=== PATIENT | female | born 1980 | race Two or more races ===

== ENCOUNTER 2025-04-06 14:11 | Emergency (ER) | payer MEDICARE, MEDICAID, SELFPAY ==
[2025-04-06 14:13] VITALS: BP 156/81; PULSE 73; RESP 19; TEMP 37.1; O2SAT 96; BMI 32.6
[2025-04-06 14:42] VITALS: BP 161/91; PULSE 81; RESP 15; TEMP 36.2; O2SAT 96; BMI 32.6
--- NOTE | 2025-04-06 14:58 | XR_ITS ---
Examination: CT left foot, without contrast. 2-D sagittal reconstructions. 2-D coronal reconstructions. 3-D reconstructions. Date and time of exam:April 06, 2025 1551 hours INDICATIONS: Injured the foot today, foot pain CTDI: vol (mGy):3.97 DLP: (mGycm):105 Technique: Multiple 1.25 mm axial sections of the left foot without and venous contrast have been obtained. 2-D sagittal and coronal reconstructions have been obtained. 3-D reconstructions have been obtained. Low dose protocols were performed. One or more of the following dose reduction techniques were used; automated exposure control, adjustment of the mA and/or KV according to patient size, use of iterative reconstruction technique. Findings: Distal tibia and distal fibula intact and Talus calcaneus cuboid navicular intact No Lisfranc tarsometatarsal dislocations No acute fracture involving metatarsals or digits No dislocation IMPRESSION: No acute fracture If pain persists, consider MRI foot without contrast follow-up
--- NOTE | 2025-04-06 14:58 | XR_ITS ---
Examination: Foot, left, 3 views Technique: AP, oblique, lateral views foot, 3 views Date and time of exam: April 06, 2025 1517 hours INDICATIONS: Injury to the foot 4 days ago, foot pain FINDINGS: Moderate osteopenia No acute fracture No dislocation IMPRESSION: No acute fracture
--- NOTE | 2025-04-06 15:52 | EDNOTE_ITS ---
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 as she has had previous issues in the past with the same foot Limitations: no limitations Related Data Previous Rx's ?Medication ?Instructions ?Recorded hydrocodone 5 mg-acetaminophen 325 1 tab PO BID PRN pa in #8 tabs 04/06/25 mg tablet ibuprofen 600 mg tablet 600 mg PO Q6H #30 tabs 04/06 Allergies Allergy/AdvReac Type Severity Reaction Status Date / Time duloxetine (From Cymbalta) Allergy Severe Anaphylaxis Verified 04/06/25 14:16 metoclopramide (From Reglan) Allergy Severe Anaphylaxis Verified 04/06/25 14:16 Review of Systems Review of Systems Systems Reviewed: All systems reviewed, normal except as documented Constitutional Constitutional: Reports system reviewed and no additional complaints, except as documented, Denies fever(s) and Denies headache(s) Eyes Eyes: Reports system reviewed and no additional complaints, except as documented and Denies blurry vision ENT Ears, Nose, Mouth, and Throat: Reports system reviewed and no additional complaints, except as documented, Denies headache(s), Denies nasal congestion and Denies nasal discharge Cardiovascular Cardiovascular: Reports system reviewed and no additional complaints, except as documented, Denies chest pain and Denies dyspnea Respiratory Respiratory: Reports system reviewed and no additional complaints, except as documented, Denies chest congestion, Denies cough and Denies dyspnea Gastrointestinal Gastrointestinal: Reports system reviewed and no additional complaints, except as documented and Denies abdominal pain Musculoskeletal Musculoskeletal: Reports system reviewed and no additional complaints, except as documented, Denies abnormal gait, Reports arthralgias, Denies deformity, Reports joint swelling, Denies numbness, Reports stiffness and Denies tingling Integumentary/Breasts Skin/Breast: Reports system reviewed and no additional complaints, except as documented and Denies rash Neurologic Neurologic: Reports system reviewed and no additional complaints, except as documented, Reports as per HPI, Denies abnormal gait, Denies headache(s), Denies numbness and Denies tingling Past Medical History Social History SMOKING STATUS: Never smoker ED Exam General Limitations: Present no limitations General appearance: Present alert and in no apparent distress Head Head exam: Present atraumatic Eye Eye exam: Present normal appearance, PERRL and EOMI ENT ENT exam: Present normal exam, normal oropharynx and mucous membranes moist Neck Neck exam: Present normal inspection, full ROM and trachea midline Chest Chest inspection: Present normal inspection and symmetric chest wall rise Respiratory Respiratory exam: Present normal lung sounds bilaterally Cardiovascular Cardiovascular exam: Present regular rate, normal rhythm and normal heart sounds Abdominal Exam Abdominal exam: Present soft and normal bowel sounds Extremities Exam Extremities exam: Present full ROM, tenderness and normal capillary refill Back Exam Back exam: Present normal inspection and full ROM Neurological Exam Neurological exam: Present alert, oriented X3, CN II-XII intact, normal gait and reflexes normal; Absent motor sensory deficit Psychiatric Psychiatric exam: Present normal affect and normal mood Skin Skin exam: Present warm, dry, intact and normal color Course Quality Measures none Orders Category Date Time Status Crutches .NOW Care 04/06/25 16:09 Completed gabriel wrap [Splint / Immobilizer] STAT Care 04/06/25 16:[address] foot LT wo con Stat Exams 04/06/25 14:58 Completed XR foot comp LT min 3V Stat Exams 04/06/25 14:58 Completed oxyCODONE/APAP 5/325 [Percocet 5/325] Med 04/06/25 16:09 Discontinued 1 tab PO X1 ONE Vital Signs Vital signs: Vital Signs Temperature 98.8 F 04/06/25 14:13 Pulse Rate 73 04/06/25 14:13 Respiratory Rate 19 04/06/25 14:13 Blood Pressure 156/81 H 04/06/25 14:13 Pulse Oximetry (%) 96 04/06/25 14:13 Oxygen Delivery Method Room Air 04/06/25 14:13 O2 saturation 96% on room air within normal limits Extremity Injury, Lower MDM Narrative MDM Narrative:: 44-year-old female presents to the emergency department for complaints of left foot pain patient reports that she dropped a box of beads on her foot on Sunday patient reports that she has a 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 as she has had previous issues in the past with the same foot On exam patient has pain and swelling to the dorsal aspect of the left foot X-ray as well as CT scan obtained no acute fracture dislocation noted Patient placed in Gabriel wrap given crutches Patient given a dose of Percocet here per her request Patient discharged home with ibuprofen and Denair Patient discharged home in no distress to follow-up with primary care doctor in the next 24 to 48 hours and for any worsening symptoms to return to the ER immediately Patient data External records reviewed:: [facility] previous records Clinical information provided by:: patient Social determinants that could affect healthcare access:: none Patient has the following chronic illnesses:: See history How is presenting disease/condition affected by chronic disease/condition?: uneffected by Evaluation data The following diagnostics were reviewed and interpreted by me:: radiology exam(s) Lab and/or radiology exams considered but not ordered:: Radiology obtain Interpretation Summary: Reviewed by me Medications / Prescriptions Medications or Prescriptions considered but not ordered:: Given Medication administrations:: Medication Administration History Discontinued Medications Oxycodone/Acetaminophen (Oxycodone/Apap 5/325 Tablet) 1 tab PO X1 ONE Stop: 04/06/25 16:10 Given Consultations Consultation(s) initiated? (list below): No Diagnosis Extremity Injury, Lower Differential Diagnosis: ankle sprain and strain and ankle fracture Most likely diagnosis given after review of the tests above:: Contusion of foot Admission Indicated Admission indicated?: not indicated Admission Request Was there a request for admission?: No Disposition Plan Disposition Plan: Discharge Discharge Attestation Discharge Attestation: The patient and all family members were given an opportunity to ask questions and understood the discharge instructions. Discharge instructions specifically effects, indications for sooner follow up or return to the emergency department, and the expected course of current diagnosis. Patient condition: Stable Discharge Plan Plan Patient Disposition: HOME (Self Care) Discharge Disposition comment: Stable Prescriptions/Referrals Prescriptions/Med Rec: New hydrocodone-acetaminophen 5-325 mg tablet 1 tab PO BID MDD 10 PRN (Reason: pain) Qty: 8 0RF ibuprofen 600 mg tablet 600 mg PO Q6H Qty: 30 0RF Referrals: Martha Sharpe MD [Primary Care Provider] - 04/07/25 Problem List Clinical Impression: Contusion of foot, left Patient/Caregiver Discharge Instructions Education Materials: Bruises (Contusions) Additional Instructions: Please follow up with your primary care doctor in the next 24-48hrs for any worsening symptoms return here immediately Print Language: Chinese Stand Alone Forms: Tila Award Info., Patient Portal Info Letter PA/FIRST OFFICER Supervising Physician PA/FIRST OFFICER Supervising Physician: Dr. pedro
[2025-04-06] MEDS: oxyCODONE/APAP 5/325 TABLET 1 TAB PO (16:10)
[2025-04-06 16:23] VITALS: PULSE 80; RESP 18; TEMP 37.2; O2SAT 99
== END 2025-04-06 16:25 | disposition home or self-care (01) ==
PROVIDERS: Emergency Provider Family Medicine; PCP Internal Medicine
DX: S90.32XA Contusion of left foot, initial encounter (principal); W20.8XXA Other cause of strike by thrown, projected or falling object, initial encounter
CPT/HCPCS: 73630; 73700; 99284; A9270

== ENCOUNTER 2025-07-08 10:08 | Emergency (ER) | payer MEDICARE, OTHER, MEDICAID, SELFPAY ==
[2025-07-08 10:33] VITALS: BP 155/92; PULSE 92; RESP 16; TEMP 37.1; O2SAT 97
--- NOTE | 2025-07-08 10:47 | XR_ITS ---
Examination: PA lateral chest 2 views TECHNIQUE: Upright PA lateral chest 2 views Date and time: July 08, 2025, 1224 hours INDICATIONS: Coughing fever chest pain beginning 2 days ago. FINDINGS: Normal heart size No pneumonia or pulmonary edema Prominent right shoulder calcific tendinitis IMPRESSION: No pneumonia or pulmonary edema
[2025-07-08 11:20] LABS: Strep A Rapid Negative (Negative)
--- NOTE | 2025-07-08 12:18 | PC.NURSE ---
SPOKE W/ GIANNI IN X-RAY THAT PT'S X-RAY NEEDS TO BE DONE. HE SAID HE WOULD COME IN A FEW MINUTES.
[2025-07-08] MEDS: KETOROLAC INJ 30 MG/ML VIAL IM (12:37)
--- NOTE | 2025-07-08 12:48 | EDNOTE_ITS ---
Upper Respiratory Inf. RME/HPI General Chief Complaint: Shortness of Breath/Dyspnea Stated Complaint: LUNGS TIGHT, CHEST PAIN, HEADACHE, BODY ACHES Time Seen by Provider: 07/08/25 10:48 Arrival date/time: 07/08/25 10:08 45-year-old female presents to the Emergency Department for patient cough, congestion, runny nose and generalized bodyaches patient for symptom onset 3 to 4 days ago reports no headache symptoms better or worse Limitations: no limitations Related Data Previous Rx's ?Medication ?Instructions ?Recorded hydrocodone 5 mg-acetaminophen 325 1 tab PO BID PRN pa in #8 tabs 04/06/25 mg tablet ibuprofen 600 mg tablet 600 mg PO Q6H #30 tabs 04/06 Ventolin HFA 90 mcg/actuation 2 puff inhalation Q6H MA N 07/08/25 aerosol inhaler (albuterol sulfate) shortness of breat h or wheezing #18 grams albuterol sulfate 2.5 mg/3 mL 2.5 mg (3 mL) inhalation Q4H PRN 07/08/25 (0.083 %) solution for nebulization shortness of breat h #90 mL benzonatate 100 mg capsule 100 mg PO TID #14 caps 06/16 02/06 Allergies Allergy/AdvReac Type Severity Reaction Status Date / Time duloxetine (From Cymbalta) Allergy Severe Anaphylaxis Verified 07/08/25 10:12 metoclopramide (From Reglan) Allergy Severe Anaphylaxis Verified 07/08/25 10:12 Review of Systems Review of Systems Systems Reviewed: All systems reviewed, normal except as documented Constitutional Constitutional: Reports system reviewed and no additional complaints, except as documented, Denies fever(s) and Reports headache(s) Eyes Eyes: Reports system reviewed and no additional complaints, except as documented and Denies blurry vision ENT Ears, Nose, Mouth, and Throat: Reports system reviewed and no additional complaints, except as documented, Reports headache(s), Reports nasal congestion and Reports nasal discharge Cardiovascular Cardiovascular: Reports system reviewed and no additional complaints, except as documented, Denies chest pain and Denies dyspnea Respiratory Respiratory: Reports system reviewed and no additional complaints, except as documented, Reports chest congestion, Reports cough and Denies dyspnea Gastrointestinal Gastrointestinal: Reports system reviewed and no additional complaints, except as documented and Denies abdominal pain Integumentary/Breasts Skin/Breast: Reports system reviewed and no additional complaints, except as documented and Denies rash Neurologic Neurologic: Reports system reviewed and no additional complaints, except as documented, Reports as per HPI and Reports headache(s) Past Medical History Social History SMOKING STATUS: Never smoker ED Exam General Limitations: Present no limitations General appearance: Present alert and in no apparent distress Head Head exam: Present atraumatic, normocephalic and normal inspection Eye Eye exam: Present normal appearance, PERRL and EOMI; Absent conjunctival injection ENT ENT exam: Present normal exam, normal oropharynx and mucous membranes moist Neck Neck exam: Present normal inspection, full ROM and trachea midline Chest Chest inspection: Present normal inspection and symmetric chest wall rise Respiratory Respiratory exam: Present normal lung sounds bilaterally Cardiovascular Cardiovascular exam: Present regular rate, normal rhythm and normal heart sounds; Absent bradycardia Abdominal Exam Abdominal exam: Present soft and normal bowel sounds; Absent distention or tenderness Extremities Exam Extremities exam: Present normal inspection and full ROM Back Exam Back exam: Present normal inspection and full ROM Neurological Exam Neurological exam: Present alert, oriented X3 and CN II-XII intact Psychiatric Psychiatric exam: Present normal affect and normal mood Skin Skin exam: Present warm, dry, intact and normal color Course Quality Measures none Orders Category Date Time Status Bedside COVID-19 Antigen Test NOW Care 07/08/25 10:47 Completed Bedside Influenza A&B Antigen Test NOW Care 07/08/25 10:47 Completed XR chest 2V Stat Exams 07/08/25 10:47 Completed Strep A Rapid Stat Lab 07/08/25 10:56 Completed Albuterol/Ipratr Rt Aruna [Duoneb Rt Aruna] Med 07/08/25 12:44 Discontinued 3 ml INH X1 ONE Dexamethasone Inj [Decadron Inj] Med 07/08/25 10:47 Discontinued 10 mg PO X1 ONE DiphenhydrAMINE [Benadryl] Med 07/08/25 10:47 Discontinued 25 mg PO X1 ONE Ketorolac Inj [Toradol Inj] Med 07/08/25 12:20 Discontinued 30 mg IM X1 ONE Vital Signs Vital signs: Vital Signs Temperature 98.7 F 07/08/25 10:33 Pulse Rate 92 07/08/25 10:33 Respiratory Rate 16 07/08/25 10:33 Blood Pressure 155/92 H 07/08/25 10:33 Pulse Oximetry (%) 97 07/08/25 10:33 Oxygen Delivery Method Room Air 07/08/25 10:33 O2 saturation 97% on room air within normal limits Upper Respiratory Infection MDM Narrative MDM Narrative:: 45-year-old female presents to the Emergency Department for patient cough, congestion, runny nose and generalized bodyaches patient for symptom onset 3 to 4 days ago reports no headache symptoms better or worse On exam patient well-appearing patient does not appear ill or toxic no acute distress Lungs are clear to auscultation but patient requesting breathing treatment Chest x-ray obtained no acute pneumonic process noted Flu and COVID-negative strep negative Symptoms consistent with viral illness For emergent concerns patient struck to return immediately for further Patient data External records reviewed:: [facility] previous records Clinical information provided by:: patient Social determinants that could affect healthcare access:: none Patient has the following chronic illnesses:: None How is presenting disease/condition affected by chronic disease/condition?: no chronic disease Evaluation data The following diagnostics were reviewed and interpreted by me:: lab results and radiology exam(s) Lab and/or radiology exams considered but not ordered:: Labs radiology obtained Interpretation Summary: Read by me Medications / Prescriptions Medications or Prescriptions considered but not ordered:: Given Medication administrations:: Medication Administration History Discontinued Medications Albuterol/Ipratropium (Albuterol/Ipratropium (Duoneb) Rt Aruna 3 Ml Nebu) 3 ml INH X1 ONE Stop: 07/08/25 12:45 Last Admin: 07/08/25 13:01 Dose: 3 ml Documented By: MARISSA Dexamethasone Sodium Phosphate (Dexamethasone Sod Phos Inj 10 Mg/Ml Vial) 10 mg PO X1 ONE Stop: 07/08/25 10:48 Last Admin: 07/08/25 10:55 Dose: Not Given Documented By: OA Non-Admin Reason: Patient Refused Diphenhydramine HCl (Diphenhydramine 25 Mg Capsule) 25 mg PO X1 ONE Stop: 07/08/25 10:48 Last Admin: 07/08/25 10:54 Dose: 25 mg Documented By: NANY Ketorolac Tromethamine (Ketorolac Inj 30 Mg/Ml Vial) 30 mg IM X1 ONE Stop: 07/08/25 12:21 Last Admin: 07/08/25 12:37 Dose: 30 mg Documented By: OA Given Consultations Consultation(s) initiated? (list below): No Diagnosis Upper Respiratory Differential Diagnosis: upper respiratory infection, sinusitis and viral infection Most likely diagnosis given after review of the tests above:: URI Admission Indicated Admission indicated?: not indicated Admission Request Was there a request for admission?: No Disposition Plan Disposition Plan: Discharge Discharge Attestation Discharge Attestation: The patient and all family members were given an opportunity to ask questions and understood the discharge instructions. Discharge instructions specifically effects, indications for sooner follow up or return to the emergency department, and the expected course of current diagnosis. Patient condition: Stable Discharge Plan Plan Patient Disposition: HOME (Self Care) Discharge Disposition comment: Stable Prescriptions/Referrals Prescriptions/Med Rec: New benzonatate 100 mg capsule 100 mg PO TID Qty: 14 0RF albuterol sulfate 2.5 mg /3 mL (0.083 %) solution for nebulization 2.5 mg IH Q4H PRN (Reason: shortness of breath) Qty: 90 0RF albuterol sulfate [Ventolin HFA] 90 mcg/actuation HFA aerosol inhaler 2 puff inhalation Q6H PRN (Reason: shortness of breath or wheezing) Qty: 18 0RF No Action hydrocodone-acetaminophen 5-325 mg tablet 1 tab PO BID MDD 10 PRN (Reason: pain) Qty: 8 0RF ibuprofen 600 mg tablet 600 mg PO Q6H Qty: 30 0RF Referrals: Martha Sharpe MD [Primary Care Provider] - 07/09/25 Problem List Clinical Impression: Upper respiratory infection Patient/Caregiver Discharge Instructions Education Materials: ED URI, Viral, No Abx (Adult) Additional Instructions: Please follow up with your primary care doctor in the next 24-48hrs for any worsening symptoms return here immediately Print Language: Cape Verdean Stand Alone Forms: Tila Award Info., Patient Portal Info Letter PA/EXTRACTOR OPERATOR SOLVENT PROCESS Supervising Physician PA/EXTRACTOR OPERATOR SOLVENT PROCESS Supervising Physician: dr dillard
[2025-07-08 13:01] VITALS: PULSE 84; RESP 18; O2SAT 99
[2025-07-08] MEDS: ALBUTEROL/IPRATROPIUM (Duoneb) RT SOL 3 ML NEBU INH (13:01)
== END 2025-07-08 13:27 | disposition home or self-care (01) ==
PROVIDERS: Nurse Practitioner Primary Care; Emergency Provider Emergency Medicine; PCP Internal Medicine
DX: J06.9 Acute upper respiratory infection, unspecified (principal)
CPT/HCPCS: 71046; 87651; 94640; 96372; 99283; A9270; J1885

== ENCOUNTER 2025-07-10 21:04 | Emergency (ER) | payer MEDICARE, MEDICAID, SELFPAY ==
[2025-07-10 21:05] VITALS: BMI 32.6
[2025-07-10 21:44] VITALS: BP 142/95; PULSE 83; RESP 17; TEMP 36.9; O2SAT 97
--- NOTE | 2025-07-10 21:51 | PD.EDRME ---
Rapid Medical Screening Exam RME Arrival date/time: 07/10/25 21:04 45F with history of unspecified angioedema presents to ED with several days of worsening dry cough and SOB. Patient was recently seen here for this. Patient also saw PCP who states she had PNA despite clear CXR and gave her Rocephin and doxy w/o improvement. Chief Complaint: Shortness of Breath/Dyspnea Time Seen by Provider: 07/10/25 22:50 Vital signs: Vital Signs Temperature 98.5 F 07/10/25 21:44 Pulse Rate 83 07/10/25 21:44 Respiratory Rate 17 07/10/25 21:44 Blood Pressure 142/95 H 07/10/25 21:44 Pulse Oximetry (%) 97 07/10/25 21:44 Oxygen Delivery Method Room Air 07/10/25 21:44
--- NOTE | 2025-07-10 22:50 | EDNOTE_ITS ---
Upper Respiratory Inf. RME/HPI General Chief Complaint: Shortness of Breath/Dyspnea Stated Complaint: DYSPNEA CHEST PAIN Time Seen by Provider: 07/10/25 22:50 Arrival date/time: 07/10/25 21:04 45F with history of unspecified angioedema presents to ED with several days of worsening dry cough and SOB. Patient was recently seen here for this. Patient also saw PCP who states she had PNA despite clear CXR and gave her Rocephin and doxy w/o improvement. Limitations: no limitations RME / HPI RME / HPI Narrative: 07/10/25 21:04 45F with history of unspecified angioedema presents to ED with several days of worsening dry cough and SOB. Patient was recently seen here for this. Patient also saw PCP who states she had PNA despite clear CXR and gave her Rocephin and doxy w/o improvement. Related Data Previous Rx's ?Medication ?Instructions ?Recorded hydrocodone 5 mg-acetaminophen 325 1 tab PO BID PRN pa in #8 tabs 04/06/25 mg tablet ibuprofen 600 mg tablet 600 mg PO Q6H #30 tabs 04/06 Ventolin HFA 90 mcg/actuation 2 puff inhalation Q6H MS N 07/08/25 aerosol inhaler (albuterol sulfate) shortness of breat h or wheezing #18 grams albuterol sulfate 2.5 mg/3 mL 2.5 mg (3 mL) inhalation Q4H PRN 07/08/25 (0.083 %) solution for nebulization shortness of breat h #90 mL benzonatate 100 mg capsule 100 mg PO TID #14 caps 06/16 02/06 albuterol sulfate 2.5 mg/3 mL 2.5 mg (3 mL) inhalation QID PRN 07/10/25 (0.083 %) solution for nebulization shortness of breat h or wheezing #75 mL Allergies Allergy/AdvReac Type Severity Reaction Status Date / Time duloxetine (From Cymbalta) Allergy Severe Anaphylaxis Verified 07/10/25 21:09 metoclopramide (From Reglan) Allergy Severe Anaphylaxis Verified 07/10/25 21:09 Review of Systems Review of Systems Systems Reviewed: All systems reviewed, normal except as documented Cardiovascular Cardiovascular: Reports dyspnea Respiratory Respiratory: Reports as per HPI, Reports cough and Reports dyspnea Past Medical History Social History SMOKING STATUS: Never smoker ED Exam General Limitations: Present no limitations General appearance: Present alert and in no apparent distress Head Head exam: Present atraumatic Neck Neck exam: Present normal inspection, full ROM and trachea midline Chest Chest inspection: Present normal inspection and symmetric chest wall rise Respiratory Respiratory exam: Present normal lung sounds bilaterally Psychiatric Psychiatric exam: Present normal affect and normal mood Skin Skin exam: Present warm, dry, intact and normal color Course Quality Measures none Orders Category Date Time Status XR chest 2V Stat Exams 07/10/25 21:51 Ordered B-Type Natriuretic Peptide Stat Lab 07/10/25 21:51 Ordered CBC Stat Lab 07/10/25 21:51 Ordered Comprehensive Metabolic Panel Stat Lab 07/10/25 21:51 Ordered Magnesium Stat Lab 07/10/25 21:51 Ordered Troponin I Stat Lab 07/10/25 21:51 Ordered Albuterol/Ipratr Rt Aruna [Duoneb Rt Aruna] Med 07/10/25 21:59 Discontinued 6 ml INH X1 ONE Dexamethasone Inj [Decadron Inj] Med 07/10/25 21:51 Discontinued 10 mg PO X1 ONE Vital Signs Vital signs: Vital Signs Temperature 98.5 F 07/10/25 21:44 Pulse Rate 83 07/10/25 21:44 Respiratory Rate 17 07/10/25 21:44 Blood Pressure 142/95 H 07/10/25 21:44 Pulse Oximetry (%) 97 07/10/25 21:44 Oxygen Delivery Method Room Air 07/10/25 21:44 O2 at 97% on RA and WNLs Upper Respiratory Infection MDM Narrative MDM Narrative:: 45F with history of unspecified angioedema presents to ED with several days of worsening dry cough and SOB. Patient was recently seen here for this. Patient also saw PCP who states she had PNA despite clear CXR and gave her Rocephin and doxy w/o improvement. Physical exam reveals clear lungs. Normal WOB. Patient is afebirle, alert, but annoyed. Patient refused diagnostics. Patient only wants breathing tx. Patient data External records reviewed:: [facility] previous records Clinical information provided by:: patient Social determinants that could affect healthcare access:: none Patient has the following chronic illnesses:: angioedema How is presenting disease/condition affected by chronic disease/condition?: exacerbated by Evaluation data The following diagnostics were reviewed and interpreted by me:: other (specify) (patient refused) Lab and/or radiology exams considered but not ordered:: patient refused Interpretation Summary: patient refused Medications / Prescriptions Medications or Prescriptions considered but not ordered:: ordered Medication administrations:: Medication Administration History Discontinued Medications Albuterol/Ipratropium (Albuterol/Ipratropium (Duoneb) Rt Aruna 3 Ml Nebu) 6 ml INH X1 ONE Stop: 07/10/25 22:00 Dexamethasone Sodium Phosphate (Dexamethasone Sod Phos Inj 10 Mg/Ml Vial) 10 mg PO X1 ONE Stop: 07/10/25 21:52 Last Admin: 07/10/25 22:46 Dose: Not Given Documented By: DT Non-Admin Reason: Patient Refused above Consultations Consultation(s) initiated? (list below): No Diagnosis Upper Respiratory Differential Diagnosis: upper respiratory infection, croup, otitis media, sinusitis, viral infection, bronchitis, influenza, pharyngitis and other (RAD) Most likely diagnosis given after review of the tests above:: RAD Admission Indicated Admission indicated?: not indicated Admission Request Was there a request for admission?: No Disposition Plan Disposition Plan: Discharge Discharge Attestation Discharge Attestation: The patient and all family members were given an opportunity to ask questions an d understood the discharge instructions. Discharge instructions specifically effects, indications for sooner follow up or return to the emergency department, and the expected course of current diagnosis. Patient condition: Stable Discharge Plan Plan Patient Disposition: HOME (Self Care) Discharge Disposition comment: Stable Prescriptions/Referrals Prescriptions/Med Rec: New albuterol sulfate 2.5 mg /3 mL (0.083 %) solution for nebulization 2.5 mg inhalation QID PRN (Reason: shortness of breath or wheezing) Qty: 75 0RF No Action hydrocodone-acetaminophen 5-325 mg tablet 1 tab PO BID MDD 10 PRN (Reason: pain) Qty: 8 0RF ibuprofen 600 mg tablet 600 mg PO Q6H Qty: 30 0RF benzonatate 100 mg capsule 100 mg PO TID Qty: 14 0RF albuterol sulfate 2.5 mg /3 mL (0.083 %) solution for nebulization 2.5 mg IH Q4H PRN (Reason: shortness of breath) Qty: 90 0RF albuterol sulfate [Ventolin HFA] 90 mcg/actuation HFA aerosol inhaler 2 puff inhalation Q6H PRN (Reason: shortness of breath or wheezing) Qty: 18 0RF Referrals: Martha Sharpe MD [Primary Care Provider] - In 1 week Problem List Clinical Impression: RAD (reactive airway disease) Patient/Caregiver Discharge Instructions Additional Instructions: Please follow-up with PCP within 24-48 hours and return immediately if symptoms worsen. Can continue taking prescribed meds from PCP. Print Language: Syriac Stand Alone Forms: Patient Portal Info Letter JENIFER/SHWETHA Supervising Physician JENIFER/HSWETHA Supervising Physician: Dr. Sprague
[2025-07-10] MEDS: ALBUTEROL/IPRATROPIUM (Duoneb) RT SOL 3 ML NEBU 6 ML INH (23:05)
[2025-07-10 23:06] VITALS: PULSE 88; RESP 20; O2SAT 100
== END 2025-07-10 23:36 | disposition home or self-care (01) ==
PROVIDERS: Emergency Provider Emergency Medicine; PCP Internal Medicine
DX: J45.909 Unspecified asthma, uncomplicated (principal)
CPT/HCPCS: 80053; 83735; 83880; 84484; 85025; 85379; 94640; 99283; A9270

== ENCOUNTER 2025-07-30 16:05 | Emergency (ER) | payer MEDICARE, OTHER, SELFPAY ==
--- NOTE | 2025-07-30 16:08 | EKG_ITS ---
[facility] Test Date: 2025-07-30 Pat Name: JEAN-CLAUDE SMALLWOOD Department: Room: - Gender: Female [employer] Operator: : 1980 Requested By: ED Temporary Provider Order Number: [id number] Reading MD: ED Temporary Provider Measurements Intervals [place] Rate: 82 P: 60 W[place]: 144 QRS: 48 QRSD: 88 T: 15 QT: 363 QTc: 424 Interpretive Statements SINUS RHYTHM No previous ECG available for comparison /store/S0/[id number]/ecg/[id number].pdf
[2025-07-30 16:14] VITALS: BP 163/91; PULSE 79; RESP 18; TEMP 36.7; O2SAT 97
--- NOTE | 2025-07-30 16:17 | PD.EDRME ---
Rapid Medical Screening Exam RME Arrival date/time: 07/30/25 16:05 45-year-old female presents to the emergency room due to complaint of left-sided chest pain radiating down her left arm onset today Chief Complaint: Chest Pain Vital signs: Vital Signs Temperature 98.1 F 07/30/25 16:14 Pulse Rate 79 07/30/25 16:14 Respiratory Rate 18 07/30/25 16:14 Blood Pressure 163/91 H 07/30/25 16:14 Pulse Oximetry (%) 97 07/30/25 16:14 Oxygen Delivery Method Room Air 07/30/25 16:14
--- NOTE | 2025-07-30 16:18 | XR_ITS ---
EXAMINATION: PA lateral chest 2 views TECHNIQUE: Upright PA lateral chest 2 views Date and time: July 30, 2025, 1704 hours, comparison 07/08/2025 INDICATIONS: Chest pain radiating to left arm with dizziness today. FINDINGS: Normal heart size Lungs are clear. The osseous structures are intact. IMPRESSION: No active disease
[2025-07-30 16:55] LABS: Basophils # (Auto) 0.0 Thou/mm3 (0.0-0.2); Basophils % (Auto) 0 % (0-2.5); Eosinophils # (Auto) 0.1 Thou/mm3 (0.0-0.5); Eosinophils % (Auto) 1 % (0-10); Hematocrit 39.0 % (36.0-46.0); Hemoglobin 13.6 g/dL (12.0-16.0); Immature Granulocytes Auto 0.03 Thou/mm3 (0.00-0.00); Lymphocytes # (Auto) 3.4 Thou/mm3 (1.0-4.8); Lymphocytes % (Auto) 32 % (10-50); Mean Corpuscular HGB Conc 34.9 g/dl (31.0-37.0); Mean Corpuscular Hemoglobin 30.0 pg (25.0-35.0); Mean Corpuscular Volume 86 fL (80-100); Monocytes # (Auto) 0.7 Thou/mm3 (0.0-0.8); Monocytes % (Auto) 7 % (0-12); Neutrophils # (Auto) 6.3 Thou/mm3 (1.8-7.7); Neutrophils % (Auto) 60 % (37-80); Nucleated Red Blood Cell # 0.00 Thou/mm3 (0.00-0.00); Nucleated Red Blood Cell % 0 /100 WBC (0); Platelet Count 302 Thou/mm3 (140-440); RDW Standard Deviation 38.3 fL (36.4-46.3); Red Blood Count 4.53 Miln/mm3 (4.00-5.20); White Blood Count 10.5 Thou/mm3 (3.6-11.0)
[2025-07-30 17:13] LABS: B-Type Natriuretic Peptide < 20 pg/mL (0-100)
[2025-07-30 17:15] LABS: Alanine Aminotransferase 15 U/L (10-49); Albumin, Serum 4.4 gm/dL (3.5-5.0); Albumin/Globulin Ratio 1.7 (1.2-2.2); Alkaline Phosphatase 57 U/L (46-116); Anion Gap 12 (7-16); Aspartate Amino Transferase 20 U/L (0-34); BUN/Creatinine Ratio 16 Ratio (12-20); Bilirubin,Total 0.2 mg/dL (0.3-1.2); Blood Urea Nitrogen 11 mg/dL (9-23); Calcium 9.4 mg/dL (8.3-10.6); Calcium (Corrected) 9.4 mg/dL (8.5-10.1); Carbon Dioxide 22.7 mMol/L (20.0-31.0); Chloride 106 mMol/L (98-107); Creatinine (Component) 0.7 mg/dL (0.6-1.3); Globulin 2.6 gm/dL (2.3-3.5); Glucose 89 mg/dL (74-106); Osmolality,Calculated 279 (275-295); Potassium 3.8 mMol/L (3.4-5.1); Sodium 141 mMol/L (136-145); Total Protein 7.0 gm/dL (5.7-8.2); Troponin I < 0.002 ng/mL (0.0-0.045); eGFR > 60 See Note
[2025-07-30 18:01] LABS: HCG,Qualitative Serum Negative
[2025-07-30 19:50] VITALS: BP 159/88; PULSE 83; RESP 18; TEMP 37.2; O2SAT 98
[2025-07-30 19:51] VITALS: BMI 33.6
--- NOTE | 2025-07-30 20:04 | EDNOTE_ITS ---
ED Chest Pain RME/HPI General Chief Complaint: Chest Pain Stated Complaint: C/P LEFT ARM PAIN X 1 HOUR Time Seen by Provider: 07/30/25 17:42 Arrival date/time: 07/30/25 16:05 RME / HPI RME / HPI narrative: 07/30/25 16:05 45-year-old female presents to the emergency room due to complaint of left-sided chest pain radiating down her left arm onset today Dr. Baker?s Main ED Evaluation: 45yo female with a history of HTN, hypothyroidism, angioedema presents to the ED for a chief complaint of left- sided chest pain x 1600. Patient was grocery shopping when she developed sudden left-sided chest pain that radiates down her left arm, rating the pain an 8 out of 10 in severity. Patient reports associated nausea. She denies any vomiting, shortness of breath, or any other associated symptoms. Denies any tobacco use. Related Data Previous Rx's ?Medication ?Instructions ?Recorded hydrocodone 5 mg-acetaminophen 325 1 tab PO BID PRN pa in #8 tabs 04/06/25 mg tablet ibuprofen 600 mg tablet 600 mg PO Q6H #30 tabs 04/06 Ventolin HFA 90 mcg/actuation 2 puff inhalation Q6H CA N 07/08/25 aerosol inhaler (albuterol sulfate) shortness of breat h or wheezing #18 grams albuterol sulfate 2.5 mg/3 mL 2.5 mg (3 mL) inhalation Q4H PRN 07/08/25 (0.083 %) solution for nebulization shortness of breat h #90 mL benzonatate 100 mg capsule 100 mg PO TID #14 caps 06/16 02/06 albuterol sulfate 2.5 mg/3 mL 2.5 mg (3 mL) inhalation QID PRN 07/10/25 (0.083 %) solution for nebulization shortness of breat h or wheezing #75 mL Allergies Allergy/AdvReac Type Severity Reaction Status Date / Time duloxetine (From Cymbalta) Allergy Severe Anaphylaxis Verified 07/30/25 16:08 metoclopramide (From Reglan) Allergy Severe Anaphylaxis Verified 07/30/25 16:08 Review of Systems Review of Systems Systems Reviewed: All systems reviewed, normal except as documented Past Medical History Past Medical History CARDIAC: Positive Hypertension; Negative Congestive Heart Failure RESPIRATORY: Negative Chronic Obstructive Pulmonary Disease (COPD) GASTROINTESTINAL: Positive Pancreatitis GENITOURINARY: Negative Renal Disease ENDOCRINE: Positive Hypothyroidism; Negative Diabetes Mellitus Type 1 or Diabetes Mellitus Type 2 PSYCHO/SOCIAL: Positive Anxiety Social History SMOKING STATUS: Never smoker ED Exam Narrative Physical exam: Generally patient is alert in no obvious distress, heart regular rate and rhythm, lungs clear to auscultation equal bilaterally, chest wall shows no tenderness to palpation, abdomen soft bowel sounds present nondistended nontender, neurologic exam Denise Coma Scale is 15, extremities show no edema Course Course Course Narrative: CXR is ordered for determining the etiology of chest pain. Quality Measures none Orders Category Date Time Status EKG (ED ONLY) *Do not use* NOW Care 07/30/25 16:09 Completed EKG (ED Only) Stat Exams 07/30/25 16:08 Draft XR chest 2V Stat Exams 07/30/25 16:18 Completed BNP [B-Type Natriuretic Peptide] Stat Lab 07/30/25 16:39 Completed CBC Stat Lab 07/30/25 16:39 Completed Comprehensive Metabolic Panel Stat Lab 07/30/25 16:39 Completed HCG,Qualitative Serum Stat Lab 07/30/25 16:39 Completed Troponin I Stat Lab 07/30/25 16:39 Completed Troponin I Stat Lab 07/30/25 20:41 Completed Ketorolac Inj [Toradol Inj] Med 07/30/25 20:13 Discontinued 30 mg IM X1 ONE Vital Signs Vital signs: Vital Signs Temperature 98.1 F 07/30/25 16:14 Pulse Rate 79 07/30/25 16:14 Respiratory Rate 18 07/30/25 16:14 Blood Pressure 163/91 H 07/30/25 16:14 Pulse Oximetry (%) 97 07/30/25 16:14 Oxygen Delivery Method Room Air 07/30/25 16:14 Chest Pain MDM Narrative MDM Narrative:: Scribe Attestation: 07/30/25 Jess Car am scribing for and in the presence of Dr. Baker. By history and physical the patient does not have a pulmonary embolism. EKG shows no ischemic changes. Chest x-ray is normal. 2 separate troponins with the second troponin being much greater than 3 hours from the onset of chest pain showed no elevation. Heart score is 2. Patient does coincidentally have cardiology follow-up next week due to her chest pains in the past. Patient is stable for discharge home. I interpreted all labs. Patient data External records reviewed:: [facility] previous records (Per chart review, patient was seen here on 07/10/25 for RAD.) Clinical information provided by:: patient Social determinants that could affect healthcare access:: none Patient has the following chronic illnesses:: HTN, hypothyroidism, angioedema How is presenting disease/condition affected by chronic disease/condition?: exacerbated by Evaluation data The following diagnostics were reviewed and interpreted by me:: lab results, radiology exam(s) and EKG tracing(s) Lab and/or radiology exams considered but not ordered:: none Interpretation Summary: [facility] Report Signed Patient: JEAN-CLAUDE SMALLWOOD [facility]. Record#: [id number] Birthdate: 1980 Age/Sex: 45 / F Location: [facility] Attending Dr: Ordering Physician: Ruy HARRIS)Adilson NP Date of Service: 07/30/25 Procedure(s): XR chest 2V Accession Number(s): [id number] cc: Ruy HARRIS),Adilson SEGOVIA; Remington Burger MD; Martha Sharpe MD~ EXAMINATION: PA lateral chest 2 views TECHNIQUE: Upright PA lateral chest 2 views Date and time: July 30, 2025, 1704 hours, comparison 07/08/2025 INDICATIONS: Chest pain radiating to left arm with dizziness today. FINDINGS: Normal heart size Lungs are clear. The osseous structures are intact. IMPRESSION: No active disease Dictated By: Remington Burger MD Signed By: <Electronically signed by Remington Burger MD in OV> 07/30/25 2968 Medications / Prescriptions Medications or Prescriptions considered but not ordered:: none Medication administrations:: Medication Administration History Discontinued Medications Ketorolac Tromethamine (Ketorolac Inj 60 Mg/2 Ml Vial) 30 mg IM X1 ONE Stop: 07/30/25 20:14 Last Admin: 07/30/25 20:29 Dose: 30 mg Documented By: AC see above Consultations Consultation(s) initiated? (list below): No Diagnosis Chest Pain Differential Diagnosis: other (See MDM) Most likely diagnosis given after review of the tests above:: see clinical impression below Admission Indicated Admission indicated?: not indicated Admission Request Was there a request for admission?: No Disposition Plan Disposition Plan: Discharge Discharge Attestation Discharge Attestation: The patient and all family members were given an opportunity to ask questions and understood the discharge instructions. Discharge instructions specifically effects, indications for sooner follow up or return to the emergency department, and the expected course of current diagnosis. Patient condition: Stable Discharge Plan Plan Patient Disposition: HOME (Self Care) Prescriptions/Referrals Prescriptions/Med Rec: No Action hydrocodone-acetaminophen 5-325 mg tablet 1 tab PO BID MDD 10 PRN (Reason: pain) Qty: 8 0RF ibuprofen 600 mg tablet 600 mg PO Q6H Qty: 30 0RF benzonatate 100 mg capsule 100 mg PO TID Qty: 14 0RF albuterol sulfate 2.5 mg /3 mL (0.083 %) solution for nebulization 2.5 mg IH Q4H PRN (Reason: shortness of breath) Qty: 90 0RF albuterol sulfate [Ventolin HFA] 90 mcg/actuation HFA aerosol inhaler 2 puff inhalation Q6H PRN (Reason: shortness of breath or wheezing) Qty: 18 0RF albuterol sulfate 2.5 mg /3 mL (0.083 %) solution for nebulization 2.5 mg inhalation QID PRN (Reason: shortness of breath or wheezing) Qty: 75 0RF Referrals: Martha Sharpe MD [Primary Care Provider] - In 1 week Problem List Clinical Impression: Chest pain Patient/Caregiver Discharge Instructions Education Materials: ED Chest Pain, Uncertain Cause Additional Instructions: Continue current medication. Keep your follow-up appointment with the room attendant. Return to ER as needed or if condition worsens. Print Language: Turkmen Stand Alone Forms: [employer] Info., Patient Portal Info Letter
[2025-07-30] MEDS: KETOROLAC INJ 60 MG/2 ML VIAL 30 MG IM (20:29)
[2025-07-30 21:08] LABS: Troponin I < 0.002 ng/mL (0.0-0.045)
[2025-07-30 21:17] VITALS: BP 141/90; PULSE 82; RESP 18; O2SAT 96
== END 2025-07-30 21:33 | disposition home or self-care (01) ==
PROVIDERS: Nurse Practitioner Primary Care; Emergency Provider Emergency Medicine; PCP Internal Medicine
DX: R07.9 Chest pain, unspecified (principal); E03.9 Hypothyroidism, unspecified; I10 Essential (primary) hypertension
CPT/HCPCS: 36415; 71046; 80053; 83880; 84484; 84703; 85025; 93005; 96372; 99284; J1885

== ENCOUNTER 2025-09-08 15:25 | Emergency (ER) | payer MEDICARE, OTHER, SELFPAY ==
[2025-09-08 15:26] VITALS: BMI 33.2
[2025-09-08 15:51] VITALS: BP 132/85; PULSE 77; RESP 18; TEMP 36.6; O2SAT 96
--- NOTE | 2025-09-08 15:57 | XR_ITS ---
Examination: CT abdomen and pelvis without contrast. Coronal 3-D reconstructions. Sagittal 2-D reconstructions. Date and time of exam: September 08, 2025, 1708 hours INDICATIONS: Bilateral flank pain painful urination beginning 1 week ago CTDI: vol (mGy): 8.61 DLP: (mGycm): 476 Technique: Axial images of the abdomen have been obtained, 3 mm slice thickness Intravenous contrast material has not been administered. Low dose protocols were performed. One or more of the following dose reduction techniques were used; automated exposure control, adjustment of the mA and/or KV according to patient size, use of iterative reconstruction technique. Findings: No focal liver or splenic lesions Contracted gallbladder No pancreatic or adrenal mass No renal or ureteral calculi, no hydronephrosis 11 mm fat-containing umbilical hernia No pericecal inflammatory change Contracted urinary bladder Moderate osteopenia Mildly prominent left ovary IMPRESSION: No renal or ureteral calculi, no hydronephrosis No CT findings of appendicitis bowel obstruction or diverticulitis Contracted urinary bladder Recommend pelvic sonography to exclude enlarged left ovary
--- NOTE | 2025-09-08 15:57 | PD.EDRME ---
Rapid Medical Screening Exam [facility] Arrival date/time: 09/08/25 15:25 45-year-old female with no known medical history presents to the emergency room with a chief complaint of bilateral flank pain and dysuria x 1 week. Patient states she is on antibiotics from her primary care provider for UTI but her symptoms have progressively gotten worse and now she has flank pain I have greeted and performed a focused initial assessment of this patient. A comprehensive ED assessment and evaluation of the patient, analysis of all test results, and completion of the medical decision making process will be conducted by additional ED providers. Chief Complaint: Urogenital-Female Vital signs: Vital Signs Temperature 98 F 09/08/25 15:51 Pulse Rate 77 09/08/25 15:51 Respiratory Rate 18 09/08/25 15:51 Blood Pressure 132/85 H 09/08/25 15:51 Pulse Oximetry (%) 96 09/08/25 15:51 Oxygen Delivery Method Room Air 09/08/25 15:51 Vital signs reviewed by provider: Yes Exam: Bilateral CVA tenderness Soft nontender abdomen Clinical Impression: Pyelonephritis/UTI
[2025-09-08 16:35] LABS: Collection Type, Urine Clean Catch
[2025-09-08 16:40] LABS: Basophils # (Auto) 0.1 Thou/mm3 (0.0-0.2); Basophils % (Auto) 0 % (0-2.5); Eosinophils # (Auto) 0.1 Thou/mm3 (0.0-0.5); Eosinophils % (Auto) 1 % (0-10); Hematocrit 41.9 % (36.0-46.0); Hemoglobin 14.5 g/dL (12.0-16.0); Immature Granulocytes Auto 0.03 Thou/mm3 (0.00-0.00); Lymphocytes # (Auto) 3.3 Thou/mm3 (1.0-4.8); Lymphocytes % (Auto) 29 % (10-50); Mean Corpuscular HGB Conc 34.6 g/dl (31.0-37.0); Mean Corpuscular Hemoglobin 30.3 pg (25.0-35.0); Mean Corpuscular Volume 88 fL (80-100); Monocytes # (Auto) 0.8 Thou/mm3 (0.0-0.8); Monocytes % (Auto) 7 % (0-12); Neutrophils # (Auto) 7.0 Thou/mm3 (1.8-7.7); Neutrophils % (Auto) 62 % (37-80); Nucleated Red Blood Cell # 0.00 Thou/mm3 (0.00-0.00); Nucleated Red Blood Cell % 0 /100 WBC (0); Platelet Count 303 Thou/mm3 (140-440); RDW Standard Deviation 40.0 fL (36.4-46.3); Red Blood Count 4.78 Miln/mm3 (4.00-5.20); White Blood Count 11.3 Thou/mm3 (3.6-11.0)
[2025-09-08 16:40] LABS: HCG Qualitative,Urine Negative
[2025-09-08 16:45] LABS: Bilirubin,Urine 1+ (Negative); Blood,Urine 2+ (Negative); Clarity,Urine Clear (Clear/Hazy); Color,Urine Drk-Orange (Lt Yel-Yel); Glucose, Urine Negative (Negative); Ketones,Urine Negative (Negative); Leukocyte Esterase,Urine Negative (Negative); Nitrite,Urine Positive (Negative); PH,Urine 6.0 (5.0-7.0); Protein,Urine Negative (Neg - Trace); RBC,Urine 32 /hpf (0-3); Specific Gravity,Urine 1.020 (1.001-1.035); Squamous Epithelial Cell,Urine 8 /hpf (0-5); Urobilinogen,Urine 3.0 mg/dL (0.0-1.0); WBC,Urine 19 /hpf (0-5)
[2025-09-08 17:09] LABS: Alanine Aminotransferase 17 U/L (10-49); Albumin, Serum 4.8 gm/dL (3.5-5.0); Albumin/Globulin Ratio 1.7 (1.2-2.2); Alkaline Phosphatase 59 U/L (46-116); Anion Gap 12 (7-16); Aspartate Amino Transferase 23 U/L (0-34); BUN/Creatinine Ratio 14 Ratio (12-20); Bilirubin,Total 0.4 mg/dL (0.3-1.2); Blood Urea Nitrogen 10 mg/dL (9-23); Calcium 9.6 mg/dL (8.3-10.6); Calcium (Corrected) 9.6 mg/dL (8.5-10.1); Carbon Dioxide 21.6 mMol/L (20.0-31.0); Chloride 107 mMol/L (98-107); Creatinine (Component) 0.7 mg/dL (0.6-1.3); Estimated Creatinine Clearance 97.1 mL/min (>60); Globulin 2.8 gm/dL (2.3-3.5); Glucose 110 mg/dL (74-106); Lipase 39 U/L (12-53); Osmolality,Calculated 281 (275-295); Potassium 4.2 mMol/L (3.4-5.1); Sodium 141 mMol/L (136-145); Total Protein 7.6 gm/dL (5.7-8.2); eGFR > 60 See Note
--- NOTE | 2025-09-08 19:30 | EDNOTE_ITS ---
ED Female Urogenital RME/HPI General Chief complaint: Urogenital-Female Stated complaint: DX WITH UTI- FEELS WORSE Time Seen by Provider: 09/08/25 19:31 Arrival date/time: 09/08/25 15:25 RME / HPI RME / HPI Narrative: 09/08/25 15:25 45-year-old female with no known medical history presents to the emergency room with a chief complaint of bilateral flank pain and dysuria x 1 week. Patient states she is on antibiotics from her primary care provider for UTI but her symptoms have progressively gotten worse and now she has flank pain I have greeted and performed a focused initial assessment of this patient. A comprehensive ED assessment and evaluation of the patient, analysis of all test results, and completion of the medical decision making process will be conducted by additional ED providers. Dr. Baker?s Main ED Evaluation: 45yo female presents to the ED for worsening bilateral flank pain and dysuria. Patient states she was diagnosed with a UTI and finished a course of Amoxicillin and Bactrim without improvement of symptoms. Patient states she went to the urgent care 2 days ago due to her symptoms persisting and was prescribed Levaquin 750mg and Pyridium for 7 days (cultures were positive for E. coli). Patient has been taking Levaquin for the last 2 days without improvement, so she came in for further evaluation. Patient denies any fever, chills, or any other associated symptoms. Related Data Previous Rx's ?Medication ?Instructions ?Recorded hydrocodone 5 mg-acetaminophen 325 1 tab PO BID PRN pa in #8 tabs 04/06/25 mg tablet ibuprofen 600 mg tablet 600 mg PO Q6H #30 tabs 04/06 Ventolin HFA 90 mcg/actuation 2 puff inhalation Q6H HI N 07/08/25 aerosol inhaler (albuterol sulfate) shortness of breat h or wheezing #18 grams albuterol sulfate 2.5 mg/3 mL 2.5 mg (3 mL) inhalation Q4H PRN 07/08/25 (0.083 %) solution for nebulization shortness of breat h #90 mL benzonatate 100 mg capsule 100 mg PO TID #14 caps 06/16 02/06 albuterol sulfate 2.5 mg/3 mL 2.5 mg (3 mL) inhalation QID PRN 07/10/25 (0.083 %) solution for nebulization shortness of breat h or wheezing #75 mL Allergies Allergy/AdvReac Type Severity Reaction Status Date / Time duloxetine (From Cymbalta) Allergy Severe Anaphylaxis Verified 09/08/25 15:28 metoclopramide (From Reglan) Allergy Severe Anaphylaxis Verified 09/08/25 15:28 Review of Systems Review of Systems Systems Reviewed: All systems reviewed, normal except as documented Past Medical History Past Medical History CARDIAC: Positive Hypertension; Negative Congestive Heart Failure RESPIRATORY: Negative Chronic Obstructive Pulmonary Disease (COPD) GASTROINTESTINAL: Positive Pancreatitis GENITOURINARY: Negative Renal Disease ENDOCRINE: Positive Hypothyroidism; Negative Diabetes Mellitus Type 1 or Diabetes Mellitus Type 2 PSYCHO/SOCIAL: Positive Anxiety Social History SMOKING STATUS: Never smoker ED Exam Narrative Physical exam: Generally patient is alert and in no obvious distress, heart regular rate and rhythm, lungs clear to auscultation equal bilaterally, abdomen soft bowel sounds present nondistended nontender, musculoskeletal exam showed no costovertebral angle tenderness Course Quality Measures none Orders Category Date Time Status CT abdomen pelvis wo con Stat Exams 09/08/25 15:57 Completed CBC Stat Lab 09/08/25 16:22 Completed CMP [Comprehensive Metabolic Panel] Stat Lab 09/08/25 16:22 Completed HCG Qualitative,Urine Stat Lab 09/08/25 16:20 Completed Lipase Stat Lab 09/08/25 16:22 Completed UA [Urinalysis] Stat Lab 09/08/25 16:20 Completed Urine Culture Stat Lab 09/08/25 16:20 Received Ketorolac Inj [Toradol Inj] Med 09/08/25 19:44 Once 30 mg IVP X1 ONE cefTRIAXone/D5w 1gm IV premix [Rocephin/D5w 1gm IV Med 09/08/25 19:44 Ordered premix] 1 gm in 50 ml IV X1 Vital Signs Vital signs: Vital Signs Temperature 98 F 09/08/25 15:51 Pulse Rate 77 09/08/25 15:51 Respiratory Rate 18 09/08/25 15:51 Blood Pressure 132/85 H 09/08/25 15:51 Pulse Oximetry (%) 96 09/08/25 15:51 Oxygen Delivery Method Room Air 09/08/25 15:51 Urogenital - Female MDM Narrative MDM Narrative:: Scribe Attestation: 09/08/25 - Jess Singer, am scribing for and in the presence of Dr. Baker. Patient has a history of angioedema and frequently swells. Whenever she gets an infection her angioedema becomes worse. She is currently battling a long urinary tract infection with her urine several days ago growing out E. coli from an urgent care. Patient currently is taking Levaquin 750 mg for 7 days. Patient has recently been on amoxicillin and Bactrim as well. She is asking for IV antibiotics to help her with the infection because she does not feel as if she is improving. I will give the patient Rocephin 1 g IV as well as Toradol 30 mg IV. Patient is to continue current antibiotics. The urine here in the emergency room was cultured. Patient is to call her the urgent care tomorrow to see if the sensitivity is back for the E. coli that grew out of their urine culture. I interpreted all labs. White count was 11,000. CT scan done of the abdomen pelvis showed no acute abnormality. Patient data External records reviewed:: [facility] previous records (Per chart review, patient was seen here on 07/30/25 for chest pain.) Clinical information provided by:: patient Social determinants that could affect healthcare access:: none Patient has the following chronic illnesses:: HTN How is presenting disease/condition affected by chronic disease/condition?: uneffected by Evaluation data The following diagnostics were reviewed and interpreted by me:: lab results and radiology exam(s) Lab and/or radiology exams considered but not ordered:: none Interpretation Summary: [facility] Report Signed Patient: JEAN-CLAUDE SMALLWOOD [facility]. Record#: [id number] Birthdate: 1980 Age/Sex: 45 / F Location: [facility] Attending Dr: Ordering Physician: Lito Lund Date of Service: 09/08/25 Procedure(s): CT abdomen pelvis wo [facility] Accession Number(s): [id number] cc: Lito Lund; Remington Burger MD; Martha Sharpe MD~ Examination: CT abdomen and pelvis without contrast. Coronal 3-D reconstructions. Sagittal 2-D reconstructions. Date and time of exam: September 08, 2025, 1708 hours INDICATIONS: Bilateral flank pain painful urination beginning 1 week ago CTDI: vol (mGy): 8.61 DLP: (mGycm): 476 Technique: Axial images of the abdomen have been obtained, 3 mm slice thickness Intravenous contrast material has not been administered. Low dose protocols were performed. One or more of the following dose reduction techniques were used; automated exposure control, adjustment of the mA and/or KV according to patient size, use of iterative reconstruction technique. Findings: No focal liver or splenic lesions Contracted gallbladder No pancreatic or adrenal mass No renal or ureteral calculi, no hydronephrosis 11 mm fat-containing umbilical hernia No pericecal inflammatory change Contracted urinary bladder Moderate osteopenia Mildly prominent left ovary IMPRESSION: No renal or ureteral calculi, no hydronephrosis No CT findings of appendicitis bowel obstruction or diverticulitis Contracted urinary bladder Recommend pelvic sonography to exclude enlarged left ovary Dictated By: Remington Burger MD Signed By: <Electronically signed by Remington Burger MD in [place]> 09/08/25 1748 Medications / Prescriptions Medications or Prescriptions considered but not ordered:: none Medication administrations:: Medication Administration History Ceftriaxone Sodium/Dextrose (Rocephin/D5w 1gm Iv Premix) 1 gm in 50 mls @ 100 mls/hr IV X1 ONE Stop: 09/08/25 20:13 Ketorolac Tromethamine (Ketorolac Inj 30 Mg/Ml Vial) 30 mg IVP X1 ONE Stop: 09/08/25 19:45 see above Consultations Consultation(s) initiated? (list below): No Diagnosis Urogenital Female Differential Diagnosis: other (See MDM) Most likely diagnosis given after review of the tests above:: see clinical impression below Admission Indicated Admission indicated?: not indicated Admission Request Was there a request for admission?: No Disposition Plan Disposition Plan: Discharge Discharge Attestation Discharge Attestation: The patient and all family members were given an opportunity to ask questions and understood the discharge instructions. Discharge instructions specifically effects, indications for sooner follow up or return to the emergency department, and the expected course of current diagnosis. Patient condition: Stable Discharge Plan Plan Patient Disposition: HOME (Self Care) Prescriptions/Referrals Prescriptions/Med Rec: No Action hydrocodone-acetaminophen 5-325 mg tablet 1 tab PO BID MDD 10 PRN (Reason: pain) Qty: 8 0RF ibuprofen 600 mg tablet 600 mg PO Q6H Qty: 30 0RF benzonatate 100 mg capsule 100 mg PO TID Qty: 14 0RF albuterol sulfate 2.5 mg /3 mL (0.083 %) solution for nebulization 2.5 mg IH Q4H PRN (Reason: shortness of breath) Qty: 90 0RF albuterol sulfate [Ventolin HFA] 90 mcg/actuation HFA aerosol inhaler 2 puff inhalation Q6H PRN (Reason: shortness of breath or wheezing) Qty: 18 0RF albuterol sulfate 2.5 mg /3 mL (0.083 %) solution for nebulization 2.5 mg inhalation QID PRN (Reason: shortness of breath or wheezing) Qty: 75 0RF Referrals: Martha Sharpe MD [Primary Care Provider] - In 1 week Problem List Clinical Impression: Urinary tract infection Patient/Caregiver Discharge Instructions Education Materials: ED CYSTITIS Female Adult Additional Instructions: Call the urgent care tomorrow to see if this sensitivity for the E. coli is back from the urine. Continue current medications. Return to ER as needed or if condition worsens. Print Language: Austrian Stand Alone Forms: Tila Award Info., Patient Portal Info Letter
[2025-09-08 19:55] VITALS: BP 167/91; PULSE 72; RESP 18; TEMP 37.1; O2SAT 97
[2025-09-08] MEDS: KETOROLAC INJ 30 MG/ML VIAL IVP (20:01)
[2025-09-08] MEDS: cefTRIAXone/D5w 1gm IV premix 1 GM/50 ML BAG IV (20:19)
== END 2025-09-08 20:42 | disposition home or self-care (01) ==
PROVIDERS: Nurse Practitioner Family; Emergency Provider Emergency Medicine; PCP Internal Medicine
DX: N39.0 Urinary tract infection, site not specified (principal); N32.89 Other specified disorders of bladder; R10.A3 Flank pain, bilateral
CPT/HCPCS: 36415; 74176; 80053; 81001; 81025; 83690; 85025; 87086; 96374; 99284; J0696; J1885